=== PATIENT | female | born 1945 | race Caucasian/White ===

== ENCOUNTER 2019-01-14 06:04 | Day surgery (SDC) | payer MEDICARE ==
[2019-01-13 15:29] LABS: BASOPHILS % (AUTO) 0.7 % (0-1); EOSINOPHILS # (AUTO) 0.2 X10'3 (0-0.9); EOSINOPHILS % (AUTO) 3.9 % (0-6); HEMATOCRIT 36.1 % (35.0-45.0); HEMOGLOBIN 12.3 g/dl (12.0-16.0); LYMPHOCYTES % (AUTO) 17.7 % (21-51); MEAN CORPUSCULAR HEMOGLOBIN 31.6 PG (27.0-31.0); MEAN CORPUSCULAR HGB CONC 33.9 g/dL (33.0-36.5); MEAN CORPUSCULAR VOLUME 93.2 FL (78-98); MEAN PLATELET VOLUME 7.9 FL (7.4-10.4); MONOCYTES # (AUTO) 0.4 X10'3 (0-0.9); MONOCYTES % (AUTO) 7.5 % (2-12); NEUTROPHILS # (AUTO) 4.1 X10'3 (1.8-7.7); NEUTROPHILS % (AUTO) 70.2 % (42-75); PLATELET COUNT 245 X10'3 (140-440); RED BLOOD COUNT 3.88 X10'6 (4.20-5.60); RED CELL DISTRIBUTION WIDTH 15.5 % (11.5-14.5); WHITE BLOOD COUNT 5.8 X10'3 (4.5-11.0)
[2019-01-13 15:42] LABS: PARTIAL THROMBOPLASTIN TIME 30 SECONDS (22-32)
[2019-01-13 15:54] LABS: ALBUMIN 3.3 G/DL (3.4-5.0); ANION GAP 9 (8-16); BLOOD UREA NITROGEN 15 MG/DL (7-18); BUN/CREATININE RATIO 21.1 (6.6-38.0); CALCIUM 8.7 MG/DL (8.5-10.1); CHLORIDE 105 MMOL/L (99-107); CREATININE 0.71 MG/DL (0.40-0.90); GLUCOSE 111 MG/DL (70-104); SODIUM 143 MMOL/L (135-145); TOTAL CARBON DIOXIDE 29.5 MMOL/L (24-32); eGFR 81 ML/MIN
[2019-01-14] VITALS (16 sets, daily range): BP systolic 92–126; BP diastolic 33–75
[~2019-01-14] VITALS: Ht 157.5 cm; Wt 95.2 kg
[2019-01-14] MEDS ORDERED: diphenhydrAMINE 25mg capsule PO PRN (06:35)
[2019-01-14] MEDS ORDERED: normal saline 1000ml 1,000 ML IV SCH (06:35)
[2019-01-14] MEDS ORDERED: LORazepam 0.5 MG tablet PO PRN (06:35)
[2019-01-14] MEDS ORDERED: LIDOcaine/PRILOcaine 5gm cream TP ONE (06:40)
[2019-01-14] MEDS ORDERED: SIMV-42 PO (06:43)
[2019-01-14] MEDS ORDERED: FERR-119 PO (06:43)
[2019-01-14] MEDS ORDERED: METF500T PO (06:43)
[2019-01-14] MEDS ORDERED: PIOG30TA71 PO (06:43)
[2019-01-14] MEDS ORDERED: RAMI5CAP65 PO (06:43)
[2019-01-14] MEDS ORDERED: PARO40TA4 PO (06:43)
[2019-01-14] MEDS ORDERED: APIX5TAB3 PO (06:43)
[2019-01-14] MEDS ORDERED: SOTA80TA73 PO (06:43)
[2019-01-14] MEDS ORDERED: fentaNYL/PF 50MCG/1 ML 2ML syringe ONE (07:34)
[2019-01-14] MEDS ORDERED: midazolam 2 mg/2 ml injection ONE (07:34)
[2019-01-14] MEDS ORDERED: verapamil 2.5 mg/ml inj IV ONE (07:34)
[2019-01-14] MEDS ORDERED: LIDOcaine 1% (10mg/ml)w/preservative injection 20ml MDV ONE (07:34)
[2019-01-14] MEDS ORDERED: heparin 1,000unit/ml 10ml vial 10 ML ONE (07:35)
[2019-01-14] MEDS ORDERED: iohexol 350MG/ML 100ml bottle IV ONE (07:35)
[2019-01-14] MEDS ORDERED: iohexol 350 MG/ML 50ML vial IV ONE (07:35)
[2019-01-14] MEDS ORDERED: nitroGLYCERIN-Tridil 50MG/D5W 250 ML IV ONE (07:38)
[2019-01-14 10:51] LABS: ISTAT HGB ART 10.5 g/dl (12.0-16.0); ISTAT Hct ART 31 %PCV (35-48); ISTAT O2 SATURATION ARTERIAL 92 % (95-98); ISTAT SOURCE ART
[2019-01-14 10:51] LABS: ISTAT Hct MIX 31 %PCV (35-48); ISTAT O2 SATURATION MIX VENOUS 72 % (60-80); ISTAT SOURCE MIX
== END 2019-01-14 15:12 | disposition home or self-care (01) ==
LOC: SSTAY O 06:04
PROVIDERS: ATTEND Internal Medicine Cardiovascular Disease
DX: R94.39 Abnormal result of other cardiovascular function study (principal); I25.10 Atherosclerotic heart disease of native coronary artery without angina pectoris; E11.9 Type 2 diabetes mellitus without complications; I10 Essential (primary) hypertension; E78.5 Hyperlipidemia, unspecified; I48.0 Paroxysmal atrial fibrillation; G47.33 Obstructive sleep apnea (adult) (pediatric); Z79.899 Other long term (current) drug therapy
CPT/HCPCS: 36415; 80048; 82803; 82948; 85014; 85025; 85610; 85730; 93005; 93460; 99152; 99153; C1769; C1894; J1644; J2001; J2250; J3010; J7030; Q0163; Q9967; A4620; A5120; A6258; J3490